=== PATIENT | male | born 1965 | race Caucasian/White ===

== ENCOUNTER 2017-07-25 17:58 | Emergency (ER) | payer OTHER, BC ==
[~2017-07-25] VITALS: Ht 180.3 cm; Wt 91.6 kg
[2017-07-25] MEDS ORDERED: FLEXERIL10 MG PO (19:07)
[2017-07-25 19:24] VITALS: BP 133/93
== END 2017-07-25 19:46 | disposition home or self-care (01) ==
LOC: EME 17:58
DX: S16.1XXA Strain of muscle, fascia and tendon at neck level, initial encounter (principal); M25.532 Pain in left wrist; V49.40XA Driver injured in collision with unspecified motor vehicles in traffic accident, initial encounter; Y92.410 Unspecified street and highway as the place of occurrence of the external cause
CPT/HCPCS: 70450; 72125; 73110; 99281; 99285